=== PATIENT | female | born 1960 | race Caucasian/White ===

== ENCOUNTER → 2017-08-15 | Outpatient (CLI) | payer OTHER ==
[~2017-08-15] MED LIST: CIPR500T87 PO; DOCU-131 PO; IBUP-1223 PO; METR500T PO; OMNIPAQUE 350 MG/ML, 100ML BOTTLE ONE
== END | disposition home or self-care (01) ==
LOC: CFH 08:33
PROVIDERS: ATTEND Nurse Practitioner Family
DX: R42 Dizziness and giddiness (principal); R22.1 Localized swelling, mass and lump, neck
CPT/HCPCS: 70450; 70491; Q9967

== ENCOUNTER → 2017-10-22 | Outpatient (CLI) | payer OTHER ==
[~2017-10-22] MED LIST changes: -OMNIPAQUE 350 MG/ML, 100ML BOTTLE ONE
== END | disposition home or self-care (01) ==
LOC: CFH 09:37
PROVIDERS: ATTEND Nurse Practitioner Family
DX: M51.37 Other intervertebral disc degeneration, lumbosacral region (principal); M41.86 Other forms of scoliosis, lumbar region; M46.1 Sacroiliitis, not elsewhere classified; Z12.31 Encounter for screening mammogram for malignant neoplasm of breast
CPT/HCPCS: 72114; 73523; 77067

== ENCOUNTER → 2018-06-07 | Outpatient (CLI) | payer OTHER | END | disposition home or self-care (01) | LOC: RAD 08:33 | PROVIDERS: ATTEND Nurse Practitioner Family | DX: M47.816 Spondylosis without myelopathy or radiculopathy, lumbar region (principal); M41.86 Other forms of scoliosis, lumbar region; M48.07 Spinal stenosis, lumbosacral region | CPT/HCPCS: 72148 ==

== ENCOUNTER 2018-07-12 15:22 | Emergency (ER) | payer OTHER ==
[~2018-07-12] VITALS: Ht 157.5 cm; Wt 111.9 kg
--- NOTE | 2018-07-12 15:44 | NUR ---
AMBULATORY TO ED XR W/ STEADY GAIT, ACCOMPANIED BY XR TECH
[2018-07-12] MEDS ORDERED: ALBUTEROL/IPRATROPIUM 2.5MG/0.5MG, 3 ML ONE (15:51)
--- NOTE | 2018-07-12 15:52 | NUR ---
PT WAS AMBULATORY BACK TO E 06 W/OUT INCIDENT. RESP TECH NOW IN ROOM FOR TX.
[2018-07-12] MEDS ORDERED: ALBUTEROL/IPRATROPIUM 2.5MG/0.5MG, 3 ML NEB ONE (16:00)
[2018-07-12] MEDS ORDERED: ALBU18HF INH (16:47)
[2018-07-12] MEDS ORDERED: DICL50TA4 PO (16:47)
[2018-07-12] MEDS ORDERED: DEXL60CA2 PO (16:47)
[2018-07-12 16:52] VITALS: BP 162/97
--- NOTE | 2018-07-12 16:53 | NUR ---
PT REQUESTING SCRIPT FOR NEW INHALER. STATES SHE'S ALMOST OUT OF CURRENT INHALER. NO PENDING APPT W/ PCP. WILL CONSULT ERP.
--- NOTE | 2018-07-12 17:02 | NUR ---
PT CHOOSING NOT TO WAIT FOR INHALER SCRIPT; WILL CONTACT HER OWN PROVIDER.
== END 2018-07-12 17:04 | disposition home or self-care (01) ==
LOC: ED 16:22
DX: J20.8 Acute bronchitis due to other specified organisms (principal); I10 Essential (primary) hypertension; J45.909 Unspecified asthma, uncomplicated; E66.01 Morbid (severe) obesity due to excess calories; Z68.42 Body mass index [BMI] 45.0-49.9, adult; Z90.49 Acquired absence of other specified parts of digestive tract; Z79.899 Other long term (current) drug therapy; Z88.2 Allergy status to sulfonamides; Z90.89 Acquired absence of other organs
CPT/HCPCS: 71046; 87081; 87880; 94640; 99284; J7620

== ENCOUNTER 2019-06-22 08:41 | Emergency (ER) | payer OTHER ==
[~2019-06-22] VITALS: Ht 162.6 cm; Wt 113.9 kg
[~2019-06-22 08:41] MED LIST changes: +ALBU18HF INH; +DEXL60CA2 PO; +DICL50TA4 PO
[2019-06-22 09:15] LABS: MICROSCOPIC NOT IND
[2019-06-22] MEDS ORDERED: HYDROmorphone 2 MG/ML, 1ML IVPush PRN (09:30)
[2019-06-22] MEDS ORDERED: SODIUM CHLORIDE 0.9% 1,000ML IVBOLUS ONE (09:30)
[2019-06-22] MEDS ORDERED: ONDANSETRON 2MG/ML, 2ML IVPush ONE (09:30)
[2019-06-22] MEDS ORDERED: SODIUM CHLORIDE FLUSH 10ML SYR IVF ONE (09:30)
[2019-06-22] MEDS ORDERED: ONDANSETRON 2MG/ML, 2ML ONE (09:45)
[2019-06-22] MEDS ORDERED: HYDROmorphone 1 MG/ML, 1ML INJ ONE (09:45)
--- NOTE | 2019-06-22 09:59 | NUR ---
PT UPRIGHT ON GURNEY AWAKE & MORE COMFORTABLE AFTER PAIN MED, RESPONDS APPROP TO STAFF, NAD, COMFORT MEASURES PROVIDED, AT BS, CALL LIGHT WITHIN REACH.
[2019-06-22 10:04] LABS: BASOPHILS # (AUTO) 0.04 x10^3/uL (0-0.1); BASOPHILS % (AUTO) 1 % (0-1); EOSINOPHILS # (AUTO) 0.36 x10^3/uL (0-0.4); EOSINOPHILS % (AUTO) 5 % (1-7); LYMPHOCYTES # (AUTO) 2.17 x10^3/uL (1-3.4); LYMPHOCYTES % (AUTO) 32 % (22-44); MD NO; MEAN CORPUSCULAR HEMOGLOBIN 28.6 pg (27.0-34.8); MEAN CORPUSCULAR HGB CONC 32.8 g/dL (32.4-35.8); MEAN PLATELET VOLUME 8.1 fL (7.4-10.4); MONOCYTES # (AUTO) 0.63 x10^3/uL (0.2-0.8); MONOCYTES % (AUTO) 9 % (2-9); NEUTROPHILS # (AUTO) 3.61 x10^3/uL (1.8-6.8); NEUTROPHILS % (AUTO) 53 % (42-75); PLATELET COUNT 277 x10^3/uL (130-400); RED BLOOD COUNT 4.55 x10^6/uL (3.82-5.3); RED CELL DISTRIBUTION WIDTH 15.1 % (9.6-15.2)
[2019-06-22 10:15] LABS: ALBUMIN 3.3 g/dL (3.4-5.0); ANION GAP 6 mmol/L (5-15); CALCIUM 8.4 mg/dL (8.5-10.1); CHLORIDE 110 mmol/L (98-107)
[2019-06-22 10:19] LABS: ALANINE AMINOTRANSFERASE 52 U/L (12-78); ALKALINE PHOSPHATASE 86 U/L (45-117); BILIRUBIN,TOTAL 0.3 mg/dL (0.2-1.0); TOTAL PROTEIN 6.7 g/dL (6.4-8.2)
--- NOTE | 2019-06-22 10:40 | NUR ---
PT TO CT
--- NOTE | 2019-06-22 10:49 | NUR ---
PT RETURNED FROM CT
[2019-06-22] MEDS ORDERED: OMNIPAQUE 350 MG/ML, 100ML BOTTLE ONE (11:00)
--- NOTE | 2019-06-22 11:02 | NUR ---
PT REMAINS UPRIGHT ON GURNEY WITH EYES CLOSED, RESPONDS APPROP TO STAFF, NAD, COMFORT MEASURES PROVIDED, AT BS, CALL LIGHT WITHIN REACH.
[2019-06-22 11:58] VITALS: BP 147/94
--- NOTE | 2019-06-22 11:59 | NUR ---
PT REMAINS UPRIGHT ON GURNEY AWAKE & COMFORTABLE, AWAITING DC INSTRUCTIONS, RESPONDS APPROP TO STAFF, NAD, COMFORT MEASURES PROVIDED, AT BS, CALL LIGHT WITHIN REACH.
--- NOTE | 2019-06-22 12:41 | NUR ---
Patient given discharge instructions and Rx, they have confirmed that they understand the instructions. Patient ambulatory with steady gait.
== END 2019-06-22 12:42 | disposition home or self-care (01) ==
LOC: ED 11:26
DX: R10.32 Left lower quadrant pain (principal); R10.12 Left upper quadrant pain; R19.7 Diarrhea, unspecified; I10 Essential (primary) hypertension; J45.909 Unspecified asthma, uncomplicated
CPT/HCPCS: 36415; 74177; 80053; 81003; 83605; 85025; 87040; 96361; 96374; 96375; 99284; J1170; J2405; J7030; Q9967